=== PATIENT | female | born 1950 | race Caucasian/White ===

== ENCOUNTER 2017-08-17 08:55 | Observation (INO) | payer BC, MEDICARE ==
--- NOTE | 2017-08-17 09:42 | RAD ---
CHEST 1 VIEW: HISTORY: Palpitations. FINDINGS: Cardiac silhouette is magnified by projection. Pulmonary vasculature unremarkable. Mediastinum midl ine. No lobar consolidation or evidence of pneumothorax. pelt inspector leads overlie the chest. IMPRESSION: No active cardiopulmonary abnormalities are demonstrated. POS: [facility]
[2017-08-17 09:54] LABS: Bilirubin Negative (Negative); Blood, Urine Negative (Negative); Clarity CLEAR (Clear); Glucose, Urine (Dipstick) Negative (Negative); Leukocyte Negative (Negative); Nitrite Negative (Negative); Protein, Urine (Dipstick) Negative (Neg-Trace); Specific Gravity, Urine 1.013 (1.002-1.036); Urobilinogen 0.2 mg/dL (0.2-1.0); pH, Urine 5.5 (5.0-9.0)
[2017-08-17 09:58] LABS: #Eosinphils 0.1 thou/uL (0.0-0.7); #Lymphocytes 1.2 thou/uL (1.20-3.40); #Monocytes 0.4 thou/uL (0.11-0.59); #Neutrophils 7.7 thou/uL (1.40-6.50); %Basophils 0.1 % (0.0-1.0); %Eosinophils 0.7 % (0.0-10.0); %Lymphocytes 12.6 % (21.0-51.0); %Monocytes 4.4 % (0.0-10.0); %Neutrophils 82.2 % (42.0-75.0); Hemoglobin 14.6 g/dL (12.0-16.0); Mean Corpuscular HGB CONC 33.8 g/dL (32.0-36.0); Mean Corpuscular Hemoglobin 29.7 pg (27.0-31.0); Mean Corpuscular Volume 87.6 fl (81.0-99.0); Mean Platelet Volume 7.9 fL (7.4-10.4); Platelet Count 152 thou/uL (130-400); RBC Distribution Width 11.6 % (11.5-14.5); Red Blood Cell (RBC) Count 4.93 mill/uL (4.20-5.40); White Blood Cell (WBC) Count 9.4 thou/uL (4.8-10.8)
[2017-08-17 10:17] LABS: CKMB 0.9 ng/mL (0-6.6); Troponin I Less than 0.010 ng/mL (< 0.028)
[2017-08-17 10:33] LABS: Chloride 104 mmol/L (98-107); Potassium 3.7 mmol/L (3.5-5.1); Sodium 139 mmol/L (136-145)
[2017-08-17 10:34] LABS: ALT (SGPT) 25 U/L (8-55); AST (SGOT) 21 U/L (5-34); Albumin 4.6 g/dL (3.4-4.8); Alkaline Phosphatase 89 U/L (40-150); Anion Gap 12 mmol/L (10-20); BUN (Urea Nitrogen) 17 mg/dL (9.8-20.1); Bilirubin, Total 0.5 mg/dL (0.2-1.2); CK (CPK) 76 U/L (29-168); Calc. Creatinine Clearance 0 mL/min (70-130); Calcium 9.8 mg/dL (7.8-10.44); Carbon Dioxide 27 mmol/L (23-31); Estimated GFR-MDRD 70; Globulin 2.9 g/dL (2.4-3.5); Glucose 148 mg/dL (80-115); Lipase 18 U/L (8-78); Protein, Total 7.5 g/dL (6.0-8.3)
[2017-08-17] MEDS ORDERED: methylPREDNISolone Sod Succ/PF 125 MG/2 ML VIAL ONE (10:46)
[2017-08-17] MEDS ORDERED: diphenhydrAMINE 50 MG/ML VIAL ONE (10:46)
[2017-08-17] MEDS ORDERED: Water For Inject, Bacteriostat 30 ML ONE (10:46)
[2017-08-17] MEDS ORDERED: Famotidine/PF 20 mg/2ml Vial SLOW IVP SCH (11:15)
--- NOTE | 2017-08-17 12:14 | CT ---
CT BRAIN WITHOUT CONTRAST: Date: 08/17/17 HISTORY: Syncope. COMPARISON: None. FINDINGS: No acute territorial infarct or hemorrhage. No midline shift or mass effect. Ventricular size and ext ra-axial CSF spaces are normal. Calvarium is intact. Paranasal sinuses and mastoids are clear. IMPRESSION: No acute intracranial abnormality. POS: [facility]
--- NOTE | 2017-08-17 12:26 | CT ---
CT ANGIOGRAM NECK WITH CONTRAST: HISTORY: Irregular heart rate and syncope. COMPARISON: None. TECHNIQUE: CT angiogram of the neck was performed after intravenous administration of contrast. Three-D renderi ng was provided. FINDINGS: The lung apices have mosaic attenuation likely from some air trapping or hypoinflation. The cervical lymph nodes are not enlarged. Dense arthrosis midcervical spine. No acute fracture. VESSELS: Right Side: Origin of the right vertebral artery is patent. Cervical vertebral artery is patent. The right vert ebral artery is dominant. Origin of the common carotid artery is patent. Small volume plaque of the proximal right internal ca rotid artery. No hemodynamically significant stenosis using NASCET criteria. Left Side: Left vertebral artery origin is patent. No focal thrombosis. The intradural left vertebral artery is atretic. There is a right [employer]ER. The left common carotid artery is patent. There is small volume plaque of the proximal left internal carotid artery. No hemodynamically significant stenosis using NASCET criteria. IMPRESSION: No hemodynamically significant stenosis. POS: [facility]
[2017-08-17 13:17] LABS: CKMB 0.7 ng/mL (0-6.6); Troponin I Less than 0.010 ng/mL (< 0.028)
[2017-08-17 14:09] LABS: Troponin I Less than 0.010 ng/mL (< 0.028)
[2017-08-17] MEDS ORDERED: Acetaminophen 325 MG TAB PO PRN (14:34)
[2017-08-17] MEDS ORDERED: Ondansetron ODT 4 MG TAB SL PRN (14:54)
[2017-08-17] MEDS ORDERED: Ondansetron HCl/PF 4 MG/2 ML Vial IVP PRN (14:54)
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
[2017-08-17 16:00] VITALS: BMI 34.4
[2017-08-17] MEDS: Sodium Chloride 0.9% 1,000 ML IV SCH ×2 (16:08→22:00)
[2017-08-17] MEDS ORDERED: ISOVUE-370 76%-LOCM 1 ML ONE (16:16)
[2017-08-17 16:52] LABS: Troponin I Less than 0.010 ng/mL (< 0.028)
--- NOTE | 2017-08-17 23:44 | CON ---
DATE OF CONSULTATION: 08/17/2017 DATE OF ADMISSION: 08/17/2017 INDICATION FOR CONSULTATION: A 67-year-old female with new onset atrial fibrillation. HISTORY OF PRESENT ILLNESS: This is a very pleasant 67-year-old female who has been followed by Dr. Cage for some time, has been complaining of recently developing some palpitations. She said that the palpitations started on 2017. At that time, she has been to a shower and drinking some wine. She notes the heart rate had been up to 130 beats per minute. This is kind of on and off thing. She then recently also after that had gone to [place] and had some more alcohol or wine there and then when she presented back here, she notes she was still continued to have some palpitations. She was getting into the shower today, was going to the bathroom, actually when she felt very hot and lightheaded and then she fell into the shower hitting her head. Then, her heard her. He went in to help her and then she was getting back. He was helping her to get back to bed and then she became very dizzy and then just collapsed but after that she was fine, but she notices her, she has some blurred vision and then she presented to the emergency room for further evaluation. Her believed that she was out for about 15-20 seconds. When she was in the emergency room, she was noted to be in atrial fibrillation. The heart rate was approximately 96 beats per minute, but then she self- converted back to sinus rhythm with a heart rate in the 59 beats per minute with no acute ST segment changes. She has had no previous history of atrial fibrillation in the past. Her most recent echocardiogram on record that I can find was 2006 as well as a stress test or echo at that time and stress tests were unremarkable. At this time, she is comfortable, but it seems that each of her episodes have been associated with drinking wine or having a recent wine intake. Her cardiac enzymes are unremarkable. She had a CT scan of the head as well as CT angiogram and chest x-ray, all of which are within normal limits. PAST MEDICAL HISTORY: Significant for hypertension, hypercholesterolemia, history of mitral valve prolapse, history of PVCs, possible SVT. She has some lower extremity venous reflux below the knees. She has had a rhinoplasty. She has had left knee surgery, which was arthroscopic. She has had a hemorrhoidectomy, cholecystectomy, sinus surgery, laminectomy and hysterectomy. ALLERGIES: She has a multitude of allergies which include ASPIRIN, PERCODAN, CIPRO, OXYCODONE, SHELLFISH, TYLENOL, MORPHINE, IODINE, and IODINE CONTAINING PRODUCTS. MEDICATIONS: Prior to admission included verapamil, lisinopril and Livalo, verapamil 240 mg a day, lisinopril 20 mg a day and Livalo was 1 mg half tablet daily. FAMILY HISTORY: Noncontributory, but there is some family history of coronary artery disease at a younger age. REVIEW OF SYSTEMS: Her 12 point review of systems unremarkable except what was noted in the history of present illness. She had no GI or complaints. No musculoskeletal complaints. No other respiratory, cardiac, or any other problems except for the occasional palpitations as what is noted in the history of present illness. PHYSICAL EXAMINATION: GENERAL: Reveals a middle-aged female, who is alert and oriented. VITAL SIGNS: Her blood pressure is 137/56, heart rate is 60, respiratory rate 16. She is afebrile. O2 saturation 95%. HEENT: Shows the head to be normocephalic and atraumatic. Carotid pulses are present. There were no bruits. There is no JVD. The heart is enlarged. Oral mucosa was pink and moist. CHEST: Clear. There are no rales, rhonchi or wheezing. CARDIOVASCULAR: Exam reveals a regular rate and rhythm at this time. There is a normal S1, S2. There is no S3, S4. There were no significant murmurs, heaves , thrills, bruits or rubs. ABDOMEN: Soft and nontender with positive bowel sounds. EXTREMITIES: Show no clubbing, cyanosis or edema. Pedal pulses are present. NEUROLOGIC: She appears to be intact. There are no deficits noted. She has normal strength and tone. SKIN: Warm and dry. Her EKG at this time shows a sinus rhythm without any acute changes. IMPRESSION: 1. New onset atrial fibrillation with self-converted back to sinus rhythm, which may be associated with the recent alcohol use. She has not been used to drink too much alcohol in the past and this has not been a problem in the past also, but at this time appears to be associated with the alcohol, but we do not have any recent echocardiogram or stress test and these will be ordered for further evaluation and we will continue to monitor her for any other arrhythmias. At this time, I will not start her on any antiarrhythmic medication, but she may be a candidate for Multaq. Obviously, she is not a very good candidate for beta blockers and she has been on verapamil in the past. This may be an option if she continues to have a normal ejection fraction to continue the verapamil and to avoid alcohol or significant amounts of caffeine. 2. Hypertension. This is under good control at this time. 3. History of hyperlipidemia. She will continue on her present medications. Dr. Cage will visit with the patient tomorrow. She will undergo an echocardiogram and stress testing prior to starting new medications, but I will also give her at least 1 dose of Lovenox. I think she was given this in the emergency room. She did not remember being given this medication. I believe this is not in the emergency, but on her medications at this time. We will follow the patient with you. Dr. Cage will have the visit with her either this evening or tomorrow. ENRIQUE
[2017-08-18] MEDS: Sodium Chloride 0.65% Nasal 44 ML BOT EA NARE PRN ×2 (00:01→05:55)
[2017-08-18 05:18] LABS: #Lymphocytes 0.8 thou/uL (1.20-3.40); #Monocytes 0.3 thou/uL (0.11-0.59); #Neutrophils 10.2 thou/uL (1.40-6.50); %Eosinophils 0.1 % (0.0-10.0); %Lymphocytes 7.2 % (21.0-51.0); %Monocytes 2.8 % (0.0-10.0); Hemoglobin 12.2 g/dL (12.0-16.0); Mean Corpuscular HGB CONC 33.4 g/dL (32.0-36.0); Mean Corpuscular Hemoglobin 29.4 pg (27.0-31.0); Mean Platelet Volume 8.2 fL (7.4-10.4); Platelet Count 142 thou/uL (130-400); RBC Distribution Width 11.7 % (11.5-14.5); Red Blood Cell (RBC) Count 4.15 mill/uL (4.20-5.40); White Blood Cell (WBC) Count 11.3 thou/uL (4.8-10.8)
[2017-08-18 05:38] LABS: Anion Gap 10 mmol/L (10-20); BUN (Urea Nitrogen) 14 mg/dL (9.8-20.1); Calc. Creatinine Clearance 100 mL/min (70-130); Calcium 9.4 mg/dL (7.8-10.44); Carbon Dioxide 25 mmol/L (23-31); Cardiac Risk 3.1 (Less than 4.5); Chloride 108 mmol/L (98-107); Cholesterol 217 mg/dl (< 200 Desired); Estimated GFR-MDRD 83; Glucose 216 mg/dL (80-115); HDL Cholesterol 69 mg/dL (>60 Neg Risk); LDL Cholesterol, Calculated 136 mg/dL; Potassium 4.2 mmol/L (3.5-5.1); Sodium 139 mmol/L (136-145); Triglycerides 61 mg/dL (Less than 150)
[2017-08-18] MEDS ORDERED: hydrALAZINE 20 MG/ML VIAL SLOW IVP PRN (06:59)
[2017-08-18] MEDS ORDERED: Artificial Tears 18 DROP/0.9 ML EA EYE PRN (06:59)
[2017-08-18] MEDS ORDERED: Milk Of Magnesia 30 ML UDCUP PO PRN (06:59)
[2017-08-18] MEDS ORDERED: Chloraseptic Spray 180 ml Bottle PO PRN (06:59)
[2017-08-18] MEDS ORDERED: Ondansetron HCl/PF 4 MG/2 ML Vial IVP PRN (06:59)
[2017-08-18] MEDS ORDERED: Loratadine 10 MG TAB PO PRN (06:59)
[2017-08-18] MEDS ORDERED: Ondansetron ODT 4 MG TAB PO PRN (06:59)
[2017-08-18] MEDS ORDERED: Loperamide HCl 2 MG CAP PO PRN (06:59)
[2017-08-18] MEDS ORDERED: Diabetic Tussin 200 MG/10 ML UDCUP PO PRN (06:59)
[2017-08-18] MEDS ORDERED: Zolpidem Tartrate 5 MG TAB PO PRN (06:59)
[2017-08-18] MEDS ORDERED: Senokot 8.6 MG TAB PO PRN (06:59)
[2017-08-18] MEDS ORDERED: Eucerin (Mineral Oil/Petrolatum,White) 30 gm Jar TOP PRN (06:59)
[2017-08-18] MEDS ORDERED: Mag-Al 1200 mg/1200 mg/30 ML UDCUP PO PRN (06:59)
[2017-08-18] MEDS: Sodium Chloride 0.9% 1,000 ML IV SCH (09:03)
--- NOTE | 2017-08-18 12:35 | PDOC.PN ---
- Subjective Encounter Start Date: 08/18/17 Encounter Start Time: 14:14 -: old records requested/rev Patient seen and examined. No new complaints. No overnight events - Objective Resuscitation Status: Resuscitation Status FULL:Full Resuscitation MAR Reviewed: Yes Vital Signs & Weight: Vital Signs (12 hours) Temp Pulse Resp BP BP BP BP 08/18/17 12:15 97.5 F L 67 12 141/63 H 138/63 08/18/17 08:00 98.3 F 53 L 12 08/18/17 07:30 98.3 F 53 L 12 147/67 H 08/18/17 04:00 97.7 F 50 L 16 134/63 BP Pulse Ox 08/18/17 12:15 132/60 97 08/18/17 08:00 08/18/17 07:30 92 L 08/18/17 04:00 93 L Weight Weight 176 lb 3.2 oz I&O: 08/17/17 08/18/17 08/19/17 06:59 06:59 06:59 Intake Total 2055 Output Total 2100 Balance -45 Result Diagrams: 08/18/17 04:18 08/18/17 04:18 Radiology Reviewed by me: Yes (stress test-negative) EKG Reviewed by me: Yes (nsr) Phys Exam - Physical Examination Constitutional: NAD HEENT: PERRLA, moist MMs, sclera anicteric Neck: no JVD, supple Respiratory: no wheezing, no rales, no rhonchi Cardiovascular: RRR, no significant murmur, no rub Gastrointestinal: soft, non-tender, no distention, positive bowel sounds Musculoskeletal: no edema, pulses present Neurological: non-focal, normal sensation, moves all 4 limbs Psychiatric: normal affect, A&O x 3 Skin: no rash, normal turgor Dx/Plan (1) Paroxysmal atrial fibrillation Code(s): I48.0 - PAROXYSMAL ATRIAL FIBRILLATION Status: Acute (2) Syncope Code(s): R55 - SYNCOPE AND COLLAPSE Status: Acute (3) Dyslipidemia Code(s): E78.5 - HYPERLIPIDEMIA, UNSPECIFIED Status: Chronic (4) Hypertension Code(s): I10 - ESSENTIAL (PRIMARY) HYPERTENSION Status: Chronic (5) Obesity (BMI 30.0-34.9) Code(s): E66.9 - OBESITY, UNSPECIFIED Status: Chronic - Plan cont current plan of care * stress test negative * cardiac etiology ruled out * may be afib contributing * if cardio ok, will dc later today. Review of Systems - Review of Systems Eyes: negative: Pain, Vision Change, Conjunctivae Inflammation, Eyelid Inflammation, Redness, Other ENT: negative: Ear Pain, Ear Discharge, Nose Pain, Nose Discharge, Nose Congestion, Mouth Pain, Mouth Swelling, Throat Pain, Throat Swelling, Other Respiratory: negative: Cough, Dry, Shortness of Breath, Hemoptysis, SOB with Excertion, Pleuritic Pain, Sputum, Wheezing Cardiovascular: negative: chest pain, palpitations, orthopnea, paroxysmal nocturnal dyspnea, edema, light headedness, other Gastrointestinal: negative: Nausea, Vomiting, Abdominal Pain, Diarrhea, Constipation, Melena, Hematochezia, Other Genitourinary: negative: Dysuria, Frequency, Incontinence, Hematuria, Retention , Other Musculoskeletal: negative: Neck Pain, Shoulder Pain, Arm Pain, Back Pain, Hand Pain, Leg Pain, Foot Pain, Other Skin: negative: Rash, Lesions, Gomez, Bruising, Other - Medications/Allergies Allergies/Adverse Reactions: Allergies Allergy/AdvReac Type Severity Reaction Status Date / Time Iodine and Iodide Containing Allergy Severe Verified 08/17/17 10:30 Produc acetaminophen [From Tylox] Allergy Verified 08/17/17 15:43 aspirin [From Percodan] Allergy Verified 08/17/17 15:43 ciprofloxacin Allergy Verified 08/17/17 15:43 morphine Allergy Verified 08/17/17 15:43 oxycodone [From Percodan] Allergy Verified 08/17/17 15:43 shellfish derived Allergy Verified 08/17/17 15:43 Medications: Current Medications Acetaminophen (Tylenol) 650 mg PO Q4H PRN PRN Reason: Headache/Fever or Pain Al Hydroxide/Mg Hydroxide (Maalox) 15 ml PO Q4H PRN PRN Reason: Heartburn or Indigestion Artificial Tears (Tears Naturale) 0 drop EA EYE PRN PRN PRN Reason: Dry Eyes Aspirin (Aspirin Chewable) 81 mg PO DAILY ERA Enoxaparin Sodium (Lovenox) 40 mg SC 0900 ERA Famotidine (Pepcid) 20 mg PO BID ERA Guaifenesin (Robitussin Sf) 200 mg PO Q4H PRN PRN Reason: Cough Hydralazine HCl (Apresoline) 10 mg SLOW IVP Q4H PRN PRN Reason: Systolic BP > 180 Lisinopril (Zestril) 10 mg PO DAILY ERA Loperamide HCl (Imodium) 2 mg PO PRN PRN PRN Reason: Diarrhea/Loose Stools Loratadine (Claritin) 10 mg PO DAILYPRN PRN PRN Reason: Sinus Symptoms Magnesium Hydroxide (Milk Of Magnesium) 30 ml PO DAILYPRN PRN PRN Reason: Constipation Mineral Oil/White Petrolatum (Eucerin Cream) 0 gm TOP BIDPRN PRN PRN Reason: Dry Skin Ondansetron HCl (Zofran Odt) 4 mg PO Q6H PRN PRN Reason: Nausea/Vomiting Ondansetron HCl (Zofran) 4 mg IVP Q6H PRN PRN Reason: Nausea/Vomiting Phenol (Chloraseptic [place] 180 Ml Bot) 0 ml PO PRN PRN PRN Reason: Sore Throat Senna (Senokot) 2 tab PO HSPRN PRN PRN Reason: Constipation Simvastatin (Zocor) 5 mg PO HS ERA Sodium Chloride ([place] Nasal [place] 0.65%) 0 ml EA NARE TID PRN PRN Reason: Nasal Congestion Last Admin: 08/18/17 05:55 Dose: 1 spr Zolpidem Tartrate (Ambien) 5 mg PO HSPRN PRN PRN Reason: Insomnia
[2017-08-18] MEDS: Famotidine 20 MG TAB PO SCH ×2 (12:57→13:11)
[2017-08-18] MEDS: Enoxaparin Sodium 40 MG/0.4 ML SYRINGE SC SCH ×3 (12:58→13:11)
[2017-08-18] MEDS: Lisinopril 10 MG TAB PO SCH ×2 (12:58→13:11)
--- NOTE | 2017-08-18 14:09 | NM ---
CARDIAC SPECT: CLINICAL HISTORY: 67-year-old female with chest pain, hypertension, dyslipidemia, paroxysmal atrial fibrillation, and s yncope. TECHNIQUE: A stress-only myocardial perfusion scan was performed following the intravenous administration of 31 mCi technetium-99m sestamibi. Pharmacologic stress with Lexiscan was monitored and interpreted by Dr. Dailey. FINDINGS: Homogeneous tracer distribution is seen in the myocardial segments on the post stress images. GATED SPECT LVEF: 74%. WALL MOTION EXAM: Normal. IMPRESSION: Normal post stress myocardial perfusion scan. POS: [facility]
[2017-08-18 15:34] VITALS: BP 150/66; TEMP 98.2
[2017-08-18] MEDS ORDERED: Regadenoson 0.4 MG/5 ML SYRINGE ONE (15:52)
[2017-08-18 15:53] LABS: Hemoglobin A1c 5.4 % (4.0-6.0)
--- NOTE | 2017-08-18 16:01 | DIS ---
DATE OF ADMISSION: 08/17/2017 DATE OF DISCHARGE: 08/18/2017 PRIMARY CARE PHYSICIAN: [facility] call admission. DISCHARGE DISPOSITION: Home. PRIMARY DISCHARGE DIAGNOSES: Syncope, paroxysmal atrial fibrillation. SECONDARY DISCHARGE DIAGNOSES: Hypertension, dyslipidemia, obesity with body mass index 34. PRIMARY PROCEDURE/OPERATION: None. RADIOLOGICAL INVESTIGATION: CT brain was negative. Chest x-ray normal. CT angiography negative. S tress test is negative for any reversible ischemia. Echocardiography pending. SIGNIFICANT LABORATORY DATA: WBC 11.3, hemoglobin 12.2, platelet 142. Sodium 139, potassium 4.2, BU N 14, creatinine 0.71, calcium 9.4. Cardiac enzymes negative. BNP 72.9, triglycerides 61, cholester ol 217, LDL 136, HDL 69. TSH 3.54. DISCHARGE MEDICATIONS: Aspirin 81 mg p.o. daily, lisinopril 10 mg p.o. daily, Livalo 0.5 mg p.o. kalpana ly, verapamil ER 240 mg p.o. daily. CONTRAINDICATIONS: None. CODE STATUS: FULL CODE. INPATIENT CONSULTANTS: Cardiology was consulted while in hospital. TEST RESULTS PENDING ON DISCHARGE: None. DISCHARGE PLAN: Post hospital, the patient is instructed to follow up with primary care physician in 1 week. The patient is instructed about diabetic diet. HOSPITAL COURSE: A 67-year-old female who was admitted by Dr. Vasquez. Please see her H&P for furthe r detail. The patient was admitted for syncopal episode. She was found with a transient atrial fibr illation in the emergency room, which was spontaneously converted to sinus rhythm. Subsequently, she did not have any arrhythmia. Initially in the emergency room, CT brain and CT angiography was negat carlo. Chest x-ray was normal. The patient was admitted for observation. Her subsequent cardiac khushbu toring was unremarkable. She underwent stress test that is also negative. Cardiology was consulted while in hospital and echocardiography was ordered, result is pending by the time of dictation. We noted that this patient's blood sugar was running high and that is why we checked hemoglobin A1c t hat result is pending by the time of dictation. Her cardiac enzymes were negative. BNP was normal. The patient is completely asymptomatic. As long as Cardiology okay, then we will consider dischargi ng this patient home later on today. Her stress test is also negative. The patient is seen and examined at bedside today. Please see my progress note from today for furthe r detail.
[2017-08-18] MEDS ORDERED: Simvastatin 5 MG TAB PO SCH (21:00)
== END 2017-08-18 17:49 | disposition home or self-care (01) ==
LOC: ERS 08:55 → 2SW 13:55
PROVIDERS: ADMIT Internal Medicine; ATTEND Internal Medicine
DX: R55 Syncope and collapse (principal); I48.0 Paroxysmal atrial fibrillation; I10 Essential (primary) hypertension; E78.5 Hyperlipidemia, unspecified; R73.03 Prediabetes; E78.00 Pure hypercholesterolemia, unspecified; E66.9 Obesity, unspecified; Z68.34 Body mass index [BMI] 34.0-34.9, adult; Z79.899 Other long term (current) drug therapy; Z88.1 Allergy status to other antibiotic agents; Z88.5 Allergy status to narcotic agent; Z91.041 Radiographic dye allergy status; Z91.013 Allergy to seafood; Z98.890 Other specified postprocedural states
CPT/HCPCS: 36415; 70450; 70498; 71045; 78452; 80048; 80053; 80061; 81003; 82550; 82553; 83036; 83690; 83880; 84443; 84484; 85025; 93005; 93017; 93306; 96361; 96372; 96374; 96375; A9500; G0378; J1200; J1650; J2785; J2930; S0028

== ENCOUNTER 2017-10-09 17:18 | Outpatient (CLI) | payer BC, MEDICARE ==
[2017-10-09 18:14] LABS: Hemoglobin 13.1 g/dL (12.0-16.0); Mean Corpuscular HGB CONC 34.7 g/dL (32.0-36.0); Mean Corpuscular Hemoglobin 30.4 pg (27.0-31.0); Mean Corpuscular Volume 87.4 fL (78.0-98.0); Mean Platelet Volume 7.8 fL (7.4-10.4); Platelet Count 169 thou/uL (130-400); RBC Distribution Width 11.8 % (11.5-14.5); Red Blood Cell (RBC) Count 4.31 mill/uL (4.20-5.40); White Blood Cell (WBC) Count 8.2 thou/uL (4.8-10.8)
[2017-10-09 18:51] LABS: Anion Gap 14 mmol/L (10-20); BUN (Urea Nitrogen) 16 mg/dL (9.8-20.1); Calc. Creatinine Clearance 0 mL/min (70-130); Calcium 9.5 mg/dL (7.8-10.44); Carbon Dioxide 24 mmol/L (23-31); Chloride 105 mmol/L (98-107); Estimated GFR-MDRD 70; Glucose 160 mg/dL (80-115); Potassium 4.2 mmol/L (3.5-5.1); Sodium 139 mmol/L (136-145)
--- NOTE | 2017-10-09 19:34 | RAD ---
PA AND LATERAL VIEWS CHEST: HISTORY: Preoperative evaluation. COMPARISON: 08/17/2017 FINDINGS: The heart size is normal. The lungs are well expanded without focal areas of consolidation, pneumoth oraces, or pleural effusions. There are degenerative changes in the spine. IMPRESSION: No radiographic evidence of acute cardiopulmonary process. POS: [facility]
== END 2017-10-09 17:19 | disposition home or self-care (01) ==
LOC: LABBT 17:18
PROVIDERS: ATTEND Internal Medicine Cardiovascular Disease
DX: Z01.818 Encounter for other preprocedural examination (principal); R55 Syncope and collapse; I49.5 Sick sinus syndrome
CPT/HCPCS: 71046; 80048; 85027; 93005; 93010

== ENCOUNTER 2017-10-12 06:08 | Observation (INO) | payer BC, MEDICARE ==
[2017-10-09 17:32] VITALS: BMI 33.0
[2017-10-12] MEDS ORDERED: CEFAZOLIN/Water 2 GM/20 ML SYRINGE ONE (06:38)
[2017-10-12] MEDS ORDERED: CEFAZOLIN 1 GM VIAL ONE (06:38)
[2017-10-12] MEDS ORDERED: Fentanyl 100 MCG/2 ML VIAL ONE (07:11)
[2017-10-12] MEDS ORDERED: Midazolam HCl 2 mg/2 ml Vial ONE (07:11)
[2017-10-12] MEDS ORDERED: Acetaminophen/Codeine 30-300mg Tablet PO PRN ×2 (08:31)
[2017-10-12] MEDS ORDERED: Gentamicin 80 MG/2 ML VIAL ONE (08:35)
[2017-10-12] MEDS ORDERED: Dronedarone HCl 400 MG TAB PO SCH (09:00)
[2017-10-12] MEDS ORDERED: Cephalexin 250 MG CAP PO SCH (09:00)
[2017-10-12] MEDS: Lisinopril 5 MG TAB PO SCH (10:09)
--- NOTE | 2017-10-12 13:22 | RAD ---
CHEST 1 VIEW: Date: 10/12/17 HISTORY: Pacemaker placement. COMPARISON: 08/17/17. FINDINGS: Cardiac silhouette and pulmonary vasculature are unremarkable. Mediastinum is midline. Dual lead left subclavian cardiac pacer is now in place with leads overlying the right atrium and right ventricle. No evidence of pneumothorax. residential monitor leads overlie the chest. IMPRESSION: Left subclavian pacer is in good radiographic position. POS: [facility]
[2017-10-12] MEDS: Cephalexin 250 MG CAP PO SCH ×2 (14:59→21:56)
[2017-10-12] MEDS: Dronedarone HCl 400 MG TAB PO SCH (18:00)
--- NOTE | 2017-10-12 18:09 | CCL ---
PROCEDURE: Permanent pacemaker placement. INDICATION: Syncope, extreme bradycardia and paroxysmal atrial fibrillation with rates in the 140s. The patient was brought to the cardiac research lab assistant. The left subclavian area was prepped and draped. Versed 1 mg and fentanyl 25 mg was given intravenously for conscious sedation for 1 hour and 20 minutes. Later in the case, an additional Versed 1 mg was given. 1% lidocaine was infiltrated and a J-wire was placed into the left subclavian vein. The pacemaker pocket was manufactured using blunt and sharp dissection with electrocautery for hemostasis. Antibiotic solution soaked 4 x 4 gauze was placed into the pocket. A 9 Georgian sheath placed over the J wire and the ventricular lead was inserted with the J-wire remaining in place. The sheath was peeled away. A 7-Georgian short sheath was inserted over the same J wire and the atrial lead was inserted and the sheath was peeled away. The ventricular lead was advanced into the RV apex and the atrial lead was screwed into the right atrium. Right ventricular lead - R-wave 8.3, impedance 909, threshold 0.3 volts. Right atrial lead - P-wave 2.0, impedance 624, threshold 0.5. The tabs on the suture tie down were removed and both leads were secured in place with two sutures of 0 silk. The solution soaked gauze was removed from the pocket and this was irrigated with copious amounts of antibiotic solution. The leads were attached to the pacemaker generator and was placed into the pocket and secured with one suture of 0 silk. The incision was then closed using two layers of running 3-0 Vicryl and one layer running 4-0 Vicryl. Dermabond was placed on the incision. Patient tolerated the procedure well. This is an MRI compatible dual chamber pacemaker with atrial therapies. [facility]
[2017-10-12] MEDS ORDERED: traMADol HCl 50 MG TAB PO PRN (19:41)
[2017-10-12] MEDS ORDERED: Prevnar 13-Val Conj/PF 0.5 ML SYRINGE IM ONE (21:00)
[2017-10-13] MEDS: Dronedarone HCl 400 MG TAB PO SCH ×2 (09:21→16:53)
[2017-10-13] MEDS: Cephalexin 250 MG CAP PO SCH ×2 (09:22→15:57)
[2017-10-13] MEDS: Lisinopril 5 MG TAB PO SCH (09:22)
--- NOTE | 2017-10-13 14:56 | HP ---
HISTORY OF PRESENT ILLNESS: Ms. Opal Valdes is a 67-year-old white female I have been following since 08/1991. At that time, she complained of chest discomfort and palpitations. In 01/1988, she had undergone echocardiogram which revealed normal left ventricular function, mild mitral valve prolapse by the criteria at that time. In 05/1988, she had a negative treadmill exercised for 9 minutes and 11 seconds. In 10/1989, she exercised for 9 minutes and 15 seconds and this was also negative. In 04/1991, she exercised for 9 minutes and 25 seconds. She had chest tightness that was felt to be due to costochondral tenderness. The treadmill was negative. When I initially saw her on 09/02/1991, she was complaining of "racing in my heart". She stated that she had palpitations intermittently that would occur 2-3 times a week. This would last approximately for 1 minute. Also, with this, she had tightness in her chest as well as shortness of breath. She was placed on BuSpar prior to my evaluation and stated that the racing had improved since that time. On physical examination, she had a 2/6 systolic murmur along the left upper sternal border. EKG was normal. She underwent Holter monitor evaluation, which revealed rare supraventricular ectopics. Also, during symptoms of "fast beats", she was in normal sinus rhythm. She was seen again in 02/1992 and she underwent another Holter monitor, which revealed a run of supraventricular tachycardia with aberrancy at 150 per minute. She would occasionally have PACswith the palpitations or SVT, but for the most part would be in normal sinus rhythm when she complained of palpitations. With the SVT, she was changed to verapamil. In 05/1994, she had occasional skipped beat which correlated with PVCs. She denied any rapid episodes of tachycardia. She was walking up to 3 miles per day, but had to stop because of heel spur. In 08/1996, she continued to complain of chest pressure that would last approximately 30 minutes, which was not associated with exertion. It was also noted that she had rare palpitations. She was not seen again until 04/2005. At that time, she complained of dyspnea on exertion after walking up 3 flights of stairs. She did complain of occasional skipped beats. She was walking 3 days per week and at that time did not have any problems. She was started on simvastatin. She was then seen in the hospital in 01/2007. She was having problems with chest pressure as well as feeling fatigued. Chest pressure would last up to 15 minutes at that time. She underwent Cardiolite treadmill testing and exercised for 10 minutes and 30 seconds and had no chest pain or EKG changes. Cardiolite revealed no evidence of ischemia. In 11/2008, verapamil was increased from 180 mg daily to 240 mg daily for blood pressure 156/72. In 10/2010, she underwent Lexiscan Cardiolite testing, which revealed no evidence of ischemia or fixed defect. In 06/2014, she underwent Lexiscan Cardiolite testing, which was probably normal with normal prone scan. She continued to be followed in the office for her hypercholesterolemia and has had problems with muscle aches with statins. She eventually was then placed on Livalo; however, she has been noncompliant with taking that. She was admitted on the 08/17/2017 stating that she did have palpitations on the 08/05. Heart rate was up to 130 per minute. This seemed to be associated with drinking wine when she was visiting in [place]. She had an episode where she became very dizzy and her tried to help her to get to bed and she collapsed. Her believes that she was out for 15-20 seconds. In the emergency room, she was in atrial fibrillation, heart rate of 96 per minute. She then converted back to sinus rhythm. Echocardiogram revealed ejection fraction of 55%-60% with evidence for diastolic dysfunction, mild mitral regurgitation and mild tricuspid regurgitation. She remained in sinus rhythm. She underwent Lexiscan Cardiolite testing, which revealed no evidence of ischemia. She was discharged with a monitor. On the monitor, she had frequent episodes of atrial fibrillation at times with rates of 130-150 per minute. She also did have episodes of sinus bradycardia with heart rates of 41 per minute. With this finding, she was started on Eliquis 5 mg b.i.d. She was out of state at that time. She then came to the office for followup once she got back in town. It was recommended that she undergo pacemaker placement. Risks of this were discussed including , infection, blood clot formation, bleeding, reoperation for lead dislodgement, pneumothorax, cardiac tamponade with the surgical drainage, etc. Once she has had that placed, then she could be placed on another antiarrhythmic such as Multaq to try to suppress her atrial fibrillation. She stopped the Eliquis to undergo pacemaker placement. PAST MEDICAL HISTORY: Hypertension; hypercholesterolemia, noncompliant with Livalo; history of mitral valve prolapse; PVCs; history of SVT in the past. OPERATIONS: Rhinoplasty, left knee surgery-arthroscopic, hemorrhoidectomy, cholecystectomy, sinus surgery, laminectomy. MEDICATIONS: Eliquis 5 mg b.i.d.; lisinopril 5 mg daily; Livalo 1 mg daily, which she is noncompliant with; and verapamil 240 daily. She is on this for hypertension as well as finding of SVT in the past. ALLERGIES: ACETAMINOPHEN, ASPIRIN, CIPRO, IODINE, MORPHINE, OXYCODONE, SHELLFISH, PERCODAN. SOCIAL HISTORY: She does not smoke or drink. 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 FAMILY HISTORY: Father of myocardial infarction at age 54. Mother has had multiple strokes. Brother had sudden at age 43. Another brother and 2 sisters have coronary artery disease. REVIEW OF SYSTEMS: Twelve-point review of systems otherwise unremarkable. PHYSICAL EXAMINATION: VITAL SIGNS: Blood pressure 170/77, pulse of 43 when seen in the office. HEENT: PERRL. NECK: Supple. CHEST: Clear. CARDIAC: S1 and S2 normal, without any S3, S4 or murmurs. Carotid upstrokes normal, without bruits. ABDOMEN: Normal bowel sounds without tenderness. EXTREMITIES: Revealed no clubbing, cyanosis or edema. NEUROLOGIC: Grossly intact. SKIN: Warm and dry. LABORATORY DATA: Laboratory is pending. IMPRESSION: 1. Sick sinus syndrome with heart rate as low as 41 per minute and atrial fibrillation with rates in the 150s. She also has had a syncopal episode prior to her last hospitalization. 2. Syncope. 3. Paroxysmal atrial fibrillation. 4. Premature ventricular contractions. 5. History of supraventricular tachycardia in the past. 6. Hypertension. 7. Hypercholesterolemia, noncompliant with Livalo. 8. Mitral regurgitation. 9. Family history of coronary artery disease. 10. Hyperglycemia. 11. History of IODINE DYE allergy. RECOMMENDATIONS: It was recommended that the patient undergo pacemaker placement. Risks of this have been discussed as noted above. She agrees to proceed. Another antiarrhythmic will be started once pacemaker has been inserted. [facility]
[2017-10-13 15:54] VITALS: BP 123/60; TEMP 98.3
--- NOTE | 2017-10-14 01:38 | DIS ---
DISCHARGE DIAGNOSES: 1. Sick sinus syndrome with heart rates of 41 per minute, as well as atrial fibrillation with rates up to 150 per minute on home monitor. 2. Syncope prior to hospitalization in 08/2017. 3. Paroxysmal atrial fibrillation. 4. Pacemaker placement on this admission. 5. History of premature ventricular contractions. 6. History of supraventricular tachycardia suppressed with verapamil. 7. Hypertension. 8. Hypercholesterolemia, noncompliant with Livalo, although she has started taking it again. 9. Mitral regurgitation. 10. Positive family history. 11. Hyperglycemia. 12. History of radiographic dye allergy. DISCHARGE DISPOSITION: The patient will be seen in 1 week for site check. In 3 months, she will have pacemaker check and at that time her atrial therapies need to be turned on. DISCHARGE MEDICATIONS: Keflex 250 t.i.d. x5 days, Multaq 400 mg b.i.d., lisinopril 5 mg daily, verapamil 240 mg at bedtime, Livalo 1 mg - one-half tablet daily. On 10/18/2017, she will resume Eliquis 5 mg b.i.d. for stroke prophylaxis. HOSPITAL COURSE: Ms. Valdes had an episode of syncope and was sent home with a 30-day monitor. She would have episodes of extreme sinus bradycardia with heart rates in the low 40s, as well as atrial fibrillation with rates up to 150 per minute. It was felt that she need to have a pacemaker placed and then additional medications to suppress her atrial fibrillation. She was out of state at that time and was started on Eliquis 5 mg b.i.d. Her Eliquis was held when she was seen in the office and then she came in and underwent pacemaker placement. This is an MRI-compatible pacemaker with atrial therapies. She was observed overnight and started on Multaq and did not have any further episodes of atrial fibrillation. ENRIQUE
--- NOTE | 2017-10-15 23:14 | EKG ---
Test Reason : Blood Pressure : / mmHG Vent. Rate : 061 BPM Atrial Rate : 061 BPM P-R Int : 094 ms QRS Dur : 078 ms QT Int : 446 ms P-R-T Axes : 043 073 060 degrees QTc Int : 448 ms AV sequential or dual chamber electronic pacemaker Confirmed by Bhavana SANABRIA ([id number]) on 10/15/2017 11:13:54 PM Referred By: KRISTEN Confirmed By:Bhavana SANABRIA
== END 2017-10-13 17:03 | disposition home or self-care (01) ==
LOC: CCL 06:08 → 2SW 09:49
PROVIDERS: ADMIT Internal Medicine Cardiovascular Disease; ATTEND Internal Medicine Cardiovascular Disease
PROC: 0JH606Z Insertion of Pacemaker, Dual Chamber into Chest Subcutaneous Tissue and Fascia, Open Approach (ICD-10-PCS; principal; 2017-10-12)
PROC: 02H63JZ Insertion of Pacemaker Lead into Right Atrium, Percutaneous Approach (ICD-10-PCS; 2017-10-12)
PROC: 02HK3JZ Insertion of Pacemaker Lead into Right Ventricle, Percutaneous Approach (ICD-10-PCS; 2017-10-12)
DX: I49.5 Sick sinus syndrome (principal); I48.0 Paroxysmal atrial fibrillation; E78.5 Hyperlipidemia, unspecified; I10 Essential (primary) hypertension; F41.9 Anxiety disorder, unspecified; E78.00 Pure hypercholesterolemia, unspecified; I34.0 Nonrheumatic mitral (valve) insufficiency; Z88.8 Allergy status to other drugs, medicaments and biological substances; Z88.5 Allergy status to narcotic agent; Z91.013 Allergy to seafood; Z91.041 Radiographic dye allergy status; Z82.49 Family history of ischemic heart disease and other diseases of the circulatory system; Z79.899 Other long term (current) drug therapy; Z79.01 Long term (current) use of anticoagulants; Z91.14 Patient's other noncompliance with medication regimen
CPT/HCPCS: 33208; 71045; 90471; 90670; 93005; 93010; 93798; 99152; 99153; C1785; C1898; G0009; G0378; J0690; J1580; J2250; J3010

== ENCOUNTER 2022-02-12 07:40 | Emergency (ER) | payer BC ==
[2022-02-12 08:42] LABS: #Eosinphils 0.1 thou/uL (0.0-0.7); #Monocytes 0.4 thou/uL (0.11-0.59); #Neutrophils 7.2 thou/uL (1.40-6.50); %Basophils 0.3 % (0.0-1.0); %Eosinophils 0.9 % (0.0-10.0); %Lymphocytes 11.7 % (21.0-51.0); %Monocytes 4.5 % (0.0-10.0); %Neutrophils 82.5 % (42.0-75.0); Hemoglobin 13.3 g/dL (12.0-16.0); Mean Corpuscular HGB CONC 33.1 g/dL (32.0-36.0); Mean Corpuscular Hemoglobin 29.1 pg (27.0-31.0); Mean Corpuscular Volume 88.1 fl (78.0-98.0); Mean Platelet Volume 8.3 fL (7.4-10.4); Platelet Count 163 10x3/uL (130-400); Red Blood Cell (RBC) Count 4.57 mill/uL (4.20-5.40); White Blood Cell (WBC) Count 8.7 10x3/uL (4.8-10.8)
[2022-02-12 09:05] LABS: ALT (SGPT) 31 U/L (8-55); AST (SGOT) 22 U/L (5-34); Albumin 4.2 g/dL (3.4-4.8); Alkaline Phosphatase 88 U/L (40-110); Anion Gap 11 mmol/L (10-20); BUN (Urea Nitrogen) 14 mg/dL (9.8-20.1); Bilirubin, Total 0.6 mg/dL (0.2-1.2); Calc. Creatinine Clearance 0 mL/min (70-130); Calcium 9.1 mg/dL (7.8-10.44); Carbon Dioxide 23 mmol/L (23-31); Chloride 104 mmol/L (98-107); Estimated GFR 67; Globulin 2.8 g/dL (2.4-3.5); Glucose 198 mg/dL (80-115); Potassium 4.2 mmol/L (3.5-5.1); Sodium 134 mmol/L (136-145)
== END 2022-02-12 10:22 | disposition home or self-care (01) ==
LOC: ERS 07:40
DX: I48.91 Unspecified atrial fibrillation (principal); E78.00 Pure hypercholesterolemia, unspecified; I10 Essential (primary) hypertension; Z79.01 Long term (current) use of anticoagulants; Z79.899 Other long term (current) drug therapy
CPT/HCPCS: 71045; 80053; 83735; 84443; 84484; 85025; 93005

== ENCOUNTER 2022-05-24 09:59 | Outpatient (CLI) | payer BC ==
[2022-05-24 10:28] LABS: Hemoglobin 12.4 g/dL (12.0-15.5); Mean Corpuscular HGB CONC 32.7 g/dL (32.0-36.0); Mean Corpuscular Hemoglobin 28.1 pg (27.0-33.0); Mean Corpuscular Volume 85.9 fl (81.6-98.3); Mean Platelet Volume 10.3 fl (7.4-10.4); Platelet Count 176 10x3/uL (150-450); Red Blood Cell (RBC) Count 4.41 10x6/uL (3.90-5.03); White Blood Cell (WBC) Count 5.1 10x3/uL (3.5-10.5)
[2022-05-24 10:49] LABS: Anion Gap 12 mmol/L (10-20); BUN (Urea Nitrogen) 8 mg/dL (9.8-20.1); Calc. Creatinine Clearance 0 mL/min (70-130); Calcium 9.2 mg/dL (7.8-10.44); Carbon Dioxide 26 mmol/L (23-31); Chloride 104 mmol/L (98-107); Estimated GFR 77; Glucose 132 mg/dL (80-115); Sodium 138 mmol/L (136-145)
[2022-05-24 10:51] LABS: INR-International Normal Ratio 1.1; PTT 32.9 sec (22.0-33.0); Prothrombin Time 11.6 sec (9.5-12.1)
== END 2022-05-24 10:00 | disposition home or self-care (01) ==
LOC: LABBT 09:59
PROVIDERS: ATTEND Internal Medicine Cardiovascular Disease
DX: Z01.818 Encounter for other preprocedural examination (principal); I48.0 Paroxysmal atrial fibrillation
CPT/HCPCS: 80048; 85027; 85610; 85730; 93005; 93010

== ENCOUNTER 2022-05-30 06:06 | Day surgery (SDC) | payer BC ==
[2022-05-27 08:41] VITALS: BMI 35.2
[2022-05-30] MEDS ORDERED: Heparin 10,000 UNITS/ 10 ML VIAL ONE ×2 (06:35→08:47)
[2022-05-30] MEDS ORDERED: fentaNYL PF 100 MCG/2 ML SYRINGE ONE (07:07)
[2022-05-30] MEDS ORDERED: Norepinephrine 4 MG/4 ML VIAL ONE (07:08)
[2022-05-30] MEDS ORDERED: Heparin 25,000 units/D5W 500 ML ONE (10:25)
[2022-05-30] MEDS ORDERED: Isoproterenol 0.2 MG/1 ML AMP ONE (10:26)
[2022-05-30] MEDS ORDERED: Furosemide 40 MG TAB PO PRN (10:53)
[2022-05-30] MEDS ORDERED: Potassium Chloride 20 MEQ TAB PO PRN (10:53)
[2022-05-30] MEDS ORDERED: Protamine Sulfate 50 MG/5 ML VIAL ONE (10:55)
[2022-05-30] MEDS ORDERED: Sucralfate 1 GM TAB PO SCH (11:30)
== END 2022-05-30 15:15 | disposition home or self-care (01) ==
LOC: SDC 06:06
PROVIDERS: ATTEND Internal Medicine Cardiovascular Disease
PROC: 02583ZZ Destruction of Conduction Mechanism, Percutaneous Approach (ICD-10-PCS; principal; 2022-05-30)
PROC: 02K83ZZ Map Conduction Mechanism, Percutaneous Approach (ICD-10-PCS; principal; 2022-05-30)
PROC: 4A023FZ Measurement of Cardiac Rhythm, Percutaneous Approach (ICD-10-PCS; principal; 2022-05-30)
PROC: 4A0234Z Measurement of Cardiac Electrical Activity, Percutaneous Approach (ICD-10-PCS; principal; 2022-05-30)
DX: I48.0 Paroxysmal atrial fibrillation (principal); I49.5 Sick sinus syndrome; I49.3 Ventricular premature depolarization; I47.1 Supraventricular tachycardia; I34.0 Nonrheumatic mitral (valve) insufficiency; I10 Essential (primary) hypertension; E78.5 Hyperlipidemia, unspecified; Z95.0 Presence of cardiac pacemaker; Z88.1 Allergy status to other antibiotic agents; Z88.5 Allergy status to narcotic agent; Z88.6 Allergy status to analgesic agent; Z91.013 Allergy to seafood; Z91.041 Radiographic dye allergy status; Z79.01 Long term (current) use of anticoagulants; Z79.85 Long-term (current) use of injectable non-insulin antidiabetic drugs; Z79.899 Other long term (current) drug therapy
CPT/HCPCS: 85347; 93005; 93622; 93623; 93656; C1732; C1759; C1760; C1894; J1644; J2720

== ENCOUNTER 2024-11-14 13:01 | Outpatient (CLI) | payer OTHER | END 2024-11-14 13:02 | disposition home or self-care (01) | LOC: BICCT 13:01 | PROVIDERS: ATTEND Internal Medicine Cardiovascular Disease | DX: Z13.6 Encounter for screening for cardiovascular disorders (principal) | CPT/HCPCS: 75571 ==